=== PATIENT | female | born 1980 | race Caucasian/White ===

== ENCOUNTER 2018-11-05 11:06 | Day surgery (SDC) | payer OTHER ==
[~2018-11-05] VITALS: Ht 162.6 cm; Wt 94.6 kg
[~2018-11-05 11:06] MED LIST: NAPROXEN; PHENTERMINE; PREN1TAB49 PO
[2018-11-05] MEDS ORDERED: PROPOFOL 200 MG INJ ONE (11:15)
[2018-11-05 11:28] VITALS: Ht 162.6 cm; Wt 94.6 kg
--- NOTE | 2018-11-05 11:47 | PREAC ---
Date/Time of Note Date/Time of Note DATE: 11/05/18 TIME: 11:47 Anesthesia Eval and Record Evaluation Time Pre-Procedure Interview DATE: 11/05/18 TIME: 11:47 Age 38 Sex female NPO: 8 hrs Preoperative diagnosis dysphagia Planned procedure egd Past Medical History Past Medical History: Includes GI: Obesity Surgery & Anesthesia Issues No known issue Meds Anticoagulation: No Beta Lizbeth within 24 hr: No Reason Beta Lizbeth not given: Pt. not on B-Lizbeth Reported Medications [Phentermine] No Conflict Check 11/05/18 [Naproxen] No Conflict Check 11/05/18 Discontinued Reported Medications Vits W-Ca,Fe,Fa(<1MG) () 1 Tab Tablet, 1 TAB PO DAILY, #14 11/13/11 Meds reviewed: Yes Allergies Coded Allergies: Sulfa (Sulfonamide Antibiotics) (Verified Allergy, Severe, SWELLING, 07/17/13) Pork/Porcine Containing Products (Verified Allergy, Mild, 07/17/13) Allergies Reviewed: Yes Labs/Studies Labs Reviewed: Reviewed by anesthesiologist test: Negative Pre-procedure Exam Airway: Adequate mouth opening, Adequate thyromental dist Mallampati: Mallampati IV Teeth: Normal Lung: Normal Heart: Normal ASA Physical Status ASA physical status: 2 Emergency: None Pre-operative Attestations Prior to commencing anesthesia and surgery, the patient was re-evaluated, there was verification of: *The patient's identity *The results of appropriate recent lab work and preoperative vital signs *The above evaluation not changing prior to induction *Anesthetic plan, risk benefits, alternative and complications discussed with patient/family; questions answered; patient/family understands, accepts and wishes to proceed. FRED NAIK DO Nov 05, 2018 11:47
[2018-11-05] MEDS ORDERED: MIDAZOLAM 1 MG/ML 2 ML INJ ONE (11:48)
[2018-11-05] MEDS ORDERED: LIDOCAINE 4% SOLUTION 50 ML BTL ONE (11:48)
[2018-11-05] MEDS ORDERED: FENTAnyl 50 MCG/ML VIAL ONE (11:48)
[2018-11-05] MEDS ORDERED: LIDOCAINE 2% (SDV) 5 ML INJ ONE (11:48)
[2018-11-05] MEDS ORDERED: ETOMIDATE 20 MG INJ ONE (11:51)
[2018-11-05 11:52] VITALS: BP 126/62; PULSE 63; RESP 22
[2018-11-05 12:28] VITALS: BP 111/64; PULSE 68; RESP 18
== END 2018-11-05 14:49 | disposition home or self-care (01) ==
LOC: GIL 11:06
PROVIDERS: ATTEND Internal Medicine Gastroenterology
DX: K29.30 Chronic superficial gastritis without bleeding (principal); K20.9 Esophagitis, unspecified; E66.9 Obesity, unspecified; Z68.38 Body mass index [BMI] 38.0-38.9, adult
CPT/HCPCS: 43239; 88305; 88312; J2250; J3010